=== PATIENT | female | born 1995 | race Caucasian/White ===

== ENCOUNTER 2017-10-24 09:08 | Inpatient (IN) ==
[2017-10-24] MEDS ORDERED: Morphine Inj 4 MG/ML Vial IV.PUSH ONE ×3 (10:05→13:01)
[2017-10-24] MEDS ORDERED: Ketorolac Inj 30 MG/ML (IVP) Vial IV.PUSH ONE ×2 (10:05→12:19)
[2017-10-24] MEDS ORDERED: Sod Chloride 0.9% Inj 1,000 ML IV.SIG ONE (10:05)
[2017-10-24] MEDS ORDERED: Diatrizoate Meglum/Diatrizoate Sod Liq 9 ML UDC ONE (10:08)
--- NOTE | 2017-10-24 10:10 | ED ---
HPI General Chief Complaint: Abdominal Pain Stated Complaint: stomach pain/sob Time Seen by Provider: 10/24/17 09:57 Source: patient Mode of arrival: ambulatory Limitations: no limitations History of Present Illness HPI narrative: The patient is a 21-year-old female who presents to the emergency department for abdominal pain. The patient states she developed nausea and vomiting 3 days ago and subsequently developed abdominal pain yesterday morning. The abdominal pain is located right lower quadrant, radiates to the flanks bilaterally, constant, aching, and associated nausea and vomiting. The patient also endorses anorexia. She denies any diarrhea. Last menstrual cycle was October 02, 2017. Patient is Ab2. The patient denies any dysuria, frequency, urgency, vaginal bleeding, vaginal discharge. She denies any associated fever, chills, or sweats. Previous abdominal surgeries include section. Patient is from the [facility], in the local area for the [facility]. MD complaint: abdominal pain Onset (ago): day(s) Pain Consistency: constant Location: RLQ Severity: moderate Severity scale (1-10): 6 Quality: aching Radiation: bilateral flank Migration to: no migration Relieving factors: nothing Exacerbating factors: nothing Associated symptoms: nausea and vomiting Related Data Date of Last Menstrual Period: 10/02/17 Patient : No Home Medications Medication Instructions Recorded Confirmed No Known Home Medications 10/24/17 10/24/17 Allergies Allergy/AdvReac Type Severity Reaction Status Date / Time No Known Allergies Allergy Unverified 10/24/17 09:17 Review of Systems Except as stated in HPI: all other systems reviewed are negative Constitutional Denies fever(s) Cardiovascular Denies chest pain Respiratory Denies dyspnea Gastrointestinal Reports abdominal pain, Denies diarrhea, Reports nausea and Reports vomiting Genitourinary Denies hematuria, Denies dysuria and Denies vaginal discharge PMFSH Social History Social History Substance History: No History of Abuse Second Hand Smoke Exposure: No Smoking Status: Current every day smoker Tobacco Type: Cigarettes How Often Do You Have a Drink Containing Alcohol: 2 to 3 times a week Recent Travel in [facility] within the Last 8 Weeks: No Recent Out of Country Travel within the Last 8 Weeks: No Immunization History Tetanus Immunization: <5 Years Hx Influenza Vaccine This Season: No Exam Narrative Exam Narrative: GENERAL: Awake, alert, pleasant 21-year-old female who appears her stated age and is in no acute respiratory distress. SKIN: Focused skin assessment warm/dry. HEAD: Atraumatic. Normocephalic. EYES: Pupils equal and round. No scleral icterus. No injection or drainage. ENT: No nasal bleeding or discharge. Mucous membranes pink and moist. NECK: Trachea midline. No JVD. CARDIOVASCULAR: Regular rate and rhythm. No murmur appreciated. RESPIRATORY: No accessory muscle use. Clear to auscultation. Breath sounds equal bilaterally. GASTROINTESTINAL: Abdomen soft, tender palpation. Positive McBurney's. Mild guarding. MUSCULOSKELETAL: No obvious deformities. No clubbing. No cyanosis. No edema. NEUROLOGICAL: Awake and alert. No obvious cranial nerve deficits. Motor grossly within normal limits. Normal speech. PSYCHIATRIC: Appropriate mood and affect; insight and judgment normal. Course Reevaluation(s) Reevaluation #1: CT the abdomen and pelvis is consistent with acute appendicitis. The patient has been n.p.o. since 7 PM last night. The patient was administered Unasyn 3 g intravenously. I discussed the patient with the general surgeon, Dr. Garcia, who agrees with 23 hour observation, he will call the operating room. Time: 12:50 Consultations Consultation #1: I discussed the patient with the on-call general surgeon, Dr. Garcia , who agrees with 23 hour observation and operative management of acute appendicitis. Time: 12:50 Initial Documented Vital Signs Temperature 96.4 F L 10/24/17 09:17 Pulse Rate 89 10/24/17 09:17 Respiratory Rate 20 10/24/17 09:17 Blood Pressure 152/113 H 10/24/17 09:17 Pulse Oximetry 98 10/24/17 09:17 Last Documented Vital Signs Temperature 96.4 F L 10/24/17 09:17 Pulse Rate 89 10/24/17 09:17 Respiratory Rate 20 10/24/17 09:17 Blood Pressure 152/113 H 10/24/17 09:17 Pulse Oximetry 98 10/24/17 09:17 Medical Decision Making [facility] Narrative Medical decision making narrative: IV was established, labs are drawn and sent, and the patient was placed on cardiac telemetry monitoring and continuous pulse oximetry monitoring. The patient was administer morphine, Toradol, Zofran, and IV fluids. The patient was kept n.p.o. CT of the abdomen and pelvis with IV and oral contrast was obtained. Bedside UA test was obtained. White count is elevated at 14, LFTs and lipase are unremarkable. CT the abdomen and pelvis reveals acute appendicitis. The patient was administered Unasyn 3 g intravenously. The patient has been kept n.p.o., I discussed the patient with the on-call general surgeon, Dr. Garcia, who agrees with 23 hour observation and definitive operative management. Differential Diagnosis Differential Diagnosis: Differential diagnosis includes appendicitis, ovarian cyst, ovarian torsion, PID, vaginitis, cervicitis, UTI ectopic , normal . Lab Data Lab results reviewed: Yes I reviewed the patient's lab results. Lab results narrative: Patient's white count is elevated at 14.0, otherwise labs are unremarkable. Result diagrams: 10/24/17 10:20 10/24/17 10:20 Lab Results 10/24/17 10/24/17 10/24/17 Range/Units 10:20 10:20 10:20 WBC 14.0 H (4.0-11.0) th/mm3 RBC 5.18 (4.00-5.30) mil/mm3 Hgb 14.5 (11.6-15.3) gm/dL Hct 40.9 (35.0-46.0) % MCV 79.0 L (80.0-100.0) fL MCH 28.0 (27.0-34.0) pg MCHC 35.4 (32.0-36.0) % RDW 12.5 (11.6-17.2) % Plt Count 286 (150-450) th/mm3 MPV 7.6 (7.0-11.0) fL Neut % (Auto) 84.5 H (16.0-70.0) % Lymph % (Auto) 8.8 L (9.0-44.0) % [place] % (Auto) 6.4 (0.0-8.0) % Eos % (Auto) 0.2 (0.0-4.0) % Baso % (Auto) 0.1 (0.0-2.0) % Neut # (Auto) 11.8 H (1.8-7.7) th/mm3 Lymph # (Auto) 1.2 (1.0-4.8) th/mm3 [place] # (Auto) 0.9 (0.0-0.9) th/mm3 Eos # (Auto) 0.0 (0.0-0.4) th/mm3 Baso # (Auto) 0.0 (0.0-0.2) th/mm3 WBC Differential . Differential Comment Auto diff final PT 9.9 (9.8-11.6) sec INR 1.0 Ratio APTT 25.6 (24.3-30.1) sec Sodium 138 (136-145) meq/L Potassium 3.9 (3.5-5.1) meq/L Chloride 105 (98-107) meq/L Carbon Dioxide 24.1 (21.0-32.0) meq/L Anion Gap 9 (5-15) meq/L BUN 7 (7-18) mg/dL Creatinine 0.85 (0.50-1.00) mg/dL Estimated GFR 84 L (>89) mL/min Random Glucose 98 (74-106) mg/dL Calcium 8.5 (8.5-10.1) mg/dL Total Bilirubin 0.4 (0.2-1.0) mg/dL AST 17 (15-37) U/L ALT 28 (10-53) U/L Alkaline Phosphatase 74 (45-117) U/L Total Protein 7.7 (6.4-8.2) g/dL Albumin 3.6 (3.4-5.0) g/dL Lipase 72 L (73-393) U/L Urine Color (Yellw/Straw) Urine Clarity (Clear) Urine pH (5.0-8.5) Ur Specific [place] (1.002-1.035) Urine Protein (Neg-Trace) mg/dL Urine Glucose (UA) (Negative) mg/dL Urine Ketones (Negative) mg/dL Urine Occult Blood (Negative) Urine Nitrate (Negative) Urine Bilirubin (Negative) Urine Urobilinogen (Less than 2) mg/dL Ur Leukocyte Esterase (Negative) Urine RBC (0-3) /hpf Urine WBC (0-5) /hpf Ur Squamous Epith Cells (0-5) /hpf Urine Bacteria (None) /hpf Urine Mucus (Occasional) /lpf Micro UA Comment Urine Culture Comments 10/24/17 Range/Units 10:30 WBC (4.0-11.0) th/mm3 RBC (4.00-5.30) mil/mm3 Hgb (11.6-15.3) gm/dL Hct (35.0-46.0) % MCV (80.0-100.0) fL MCH (27.0-34.0) pg MCHC (32.0-36.0) % RDW (11.6-17.2) % Plt Count (150-450) th/mm3 MPV (7.0-11.0) fL Neut % (Auto) (16.0-70.0) % Lymph % (Auto) (9.0-44.0) % [place] % (Auto) (0.0-8.0) % Eos % (Auto) (0.0-4.0) % Baso % (Auto) (0.0-2.0) % Neut # (Auto) (1.8-7.7) th/mm3 Lymph # (Auto) (1.0-4.8) th/mm3 [place] # (Auto) (0.0-0.9) th/mm3 Eos # (Auto) (0.0-0.4) th/mm3 Baso # (Auto) (0.0-0.2) th/mm3 WBC Differential Differential Comment PT (9.8-11.6) sec INR Ratio APTT (24.3-30.1) sec Sodium (136-145) meq/L Potassium (3.5-5.1) meq/L Chloride (98-107) meq/L Carbon Dioxide (21.0-32.0) meq/L Anion Gap (5-15) meq/L BUN (7-18) mg/dL Creatinine (0.50-1.00) mg/dL Estimated GFR (>89) mL/min Random Glucose (74-106) mg/dL Calcium (8.5-10.1) mg/dL Total Bilirubin (0.2-1.0) mg/dL AST (15-37) U/L ALT (10-53) U/L Alkaline Phosphatase (45-117) U/L Total Protein (6.4-8.2) g/dL Albumin (3.4-5.0) g/dL Lipase (73-393) U/L Urine Color Yellow (Yellw/Straw) Urine Clarity Hazy H (Clear) Urine pH 7.0 (5.0-8.5) Ur Specific [place] 1.025 (1.002-1.035) Urine Protein 30 H (Neg-Trace) mg/dL Urine Glucose (UA) Negative (Negative) mg/dL Urine Ketones 20 (Negative) mg/dL Urine Occult Blood Negative (Negative) Urine Nitrate Negative (Negative) Urine Bilirubin Negative (Negative) Urine Urobilinogen Less than 2 (Less than 2) mg/dL Ur Leukocyte Esterase Negative (Negative) Urine RBC Less than 1 (0-3) /hpf Urine WBC 7 H (0-5) /hpf Ur Squamous Epith Cells 38 (0-5) /hpf Urine Bacteria Few H (None) /hpf Urine Mucus Moderate H (Occasional) /lpf Micro UA Comment Culture not ind Urine Culture Comments Culture not ind Imaging Data Radiologist's impression: ITS Impressions Abdomen/Pelvis CT 10/24/17 10:05 CONCLUSION: 1. Findings consistent with acute appendicitis. No perforation or abscess. Discharge Plan Discharge Disposition Patient Disposition: 30 Still Patient Discharge Condition Condition: Stable Discharge Details Discharge Problem: Acute appendicitis Physicians Team ED Provider: Gabe Wang Primary Care Provider: Primary Care Leona Cabrera Rxs /Orders / Referrals /Forms Prescriptions: No Action No Known Home Medications RF: 0 Status ED Status: With Doctor
[2017-10-24] MEDS ORDERED: Diatrizoate Meglum/Diatrizoate Sod Liq 9 ML UDC PO ONE (10:42)
[2017-10-24 10:54] LABS: Baso % (Auto) 0.1 % (0.0-2.0); Eos % (Auto) 0.2 % (0.0-4.0); Hematocrit 40.9 % (35.0-46.0); Hemoglobin 14.5 gm/dL (11.6-15.3); Lymph # (Auto) 1.2 th/mm3 (1.0-4.8); Lymph % (Auto) 8.8 % (9.0-44.0); Mean Corpuscular HGB Conc 35.4 % (32.0-36.0); Mean Platelet Volume 7.6 fL (7.0-11.0); Mono # (Auto) 0.9 th/mm3 (0.0-0.9); Mono % (Auto) 6.4 % (0.0-8.0); Neut # (Auto) 11.8 th/mm3 (1.8-7.7); Neut % (Auto) 84.5 % (16.0-70.0); Platelet Count 286 th/mm3 (150-450); Red Blood Count 5.18 mil/mm3 (4.00-5.30); Red Cell Distribution Width 12.5 % (11.6-17.2)
[2017-10-24 11:04] LABS: Activated Partial Thrombo Time 25.6 sec (24.3-30.1); Prothrombin Time 9.9 sec (9.8-11.6)
[2017-10-24 11:17] LABS: Alanine Aminotransferase 28 U/L (10-53); Albumin 3.6 g/dL (3.4-5.0); Anion Gap 9 meq/L (5-15); Aspartate Aminotransferase 17 U/L (15-37); Blood Urea Nitrogen 7 mg/dL (7-18); Calcium 8.5 mg/dL (8.5-10.1); Carbon Dioxide 24.1 meq/L (21.0-32.0); Chloride 105 meq/L (98-107); Glomerular Filtration Rate 84 mL/min (>89); Glucose,Random 98 mg/dL (74-106); Lipase 72 U/L (73-393); Potassium 3.9 meq/L (3.5-5.1); Sodium 138 meq/L (136-145)
[2017-10-24 11:18] LABS: Bacteria,Urine Few /hpf; Bilirubin,Urine Negative (Negative); Clarity,Urine Hazy (Clear); Color,Urine Yellow (Yellw/Straw); Glucose,Urine (UA) Negative (Negative); Leukocyte Esterase,Urine Negative (Negative); Mucus,Urine Moderate /lpf (Occasional); Nitrite,Urine Negative (Negative); Specific Gravity,Urine 1.025 (1.002-1.035); Squamous Epithelial Cell,Urine 38 /hpf (0-5)
[2017-10-24 11:19] LABS: Alkaline Phosphatase 74 U/L (45-117); Total Protein 7.7 g/dL (6.4-8.2)
[2017-10-24] MEDS ORDERED: Lidocaine PF 1% Inj 5 ML Syringe INFILTRATN ONE (12:19)
[2017-10-24] MEDS ORDERED: Glycopyrrolate Inj 1 MG/5 ML Syringe IV.PUSH ONE (12:19)
[2017-10-24] MEDS ORDERED: Succinylcholine Inj 200 MG/10 ML Vial IV.PUSH ONE (12:19)
[2017-10-24] MEDS ORDERED: Neostigmine Inj 5 MG/5 ML Syringe IV.PUSH ONE (12:19)
--- NOTE | 2017-10-24 12:46 | CT ---
EXAM DATE: 10/24/2017 12:36 PM EDT AGE/SEX: 21 years / Female INDICATIONS: Right lower abdominal pain. CLINICAL DATA: This is the patient's initial encounter. Patient reports that signs and symptoms have been present for 2 days and indicates a pain score of 5/10. MEDICAL/SURGICAL HISTORY: None. None. ORAL CONTRAST: Prescribed oral contrast ingested. RADIATION DOSE: 9.79 CTDI (mGy) COMPARISON: No prior exams available for comparison. TECHNIQUE: Multiple contiguous axial images were obtained through the abdomen and pelvis following b olus infusion of 80 ml Omnipaque 350 (iohexol) nonionic water-soluble contrast as a single exam dos e. Prescribed oral contrast ingested. Using automated exposure control and adjustment of the mA and/ or kV according to patient size, radiation dose was kept as low as reasonably achievable to obtain op timal diagnostic quality images. DICOM format image data is available electronically for review and comparison. FINDINGS: Lower Lungs: The visualized lower lungs are clear. Liver: The liver has a homogeneous density without space-occupying lesion. There is no dilation of th e biliary tree. Spleen: Homogeneous density without enlargement. Pancreas: Unremarkable without mass or calcification. Kidneys: Normal in size and shape. No evidence of mass or hydronephrosis. Adrenal Glands: Unremarkable. Aorta: The aorta and proximal iliac vessels are grossly unremarkable without aneurysmal dilation. Bowel/Mesentery: The bowel loops are grossly unremarkable. The cecum and sigmoid colon have a normal configuration. Appendix is prominent with slight inflammatory changes. Diameter is 11 mm. Small lymp h nodes right lower quadrant. Abdominal Wall: Intact. Retroperitoneum: No evidence of adenopathy in the retrocrural, para-aortic, or deep pelvic regions. Bladder: Contours are smooth. Reproductive Organs: No abnormal masses or calcifications seen. Inguinal: The inguinal region is unremarkable without evidence of adenopathy. Bony Structures: Unremarkable. CONCLUSION: 1. Findings consistent with acute appendicitis. No perforation or abscess. Electronically signed by: Cody Acosta MD 10/24/2017 12:45 PM EDT
[2017-10-24] MEDS ORDERED: Ampicillin/Sulbactam Inj 3 GM in Sodium Chloride 0.9% Inj 100 ML IV.SIG ONE (12:49)
[2017-10-24] MEDS ORDERED: Bupivacaine/Epinephrine Inj 0.25% 50 ML Vial ONE (13:54)
[2017-10-24] MEDS ORDERED: fentaNYL Citrate Inj 100 MCG/2 ML Ampul ONE (15:43)
[2017-10-24] MEDS ORDERED: Post-op Orders (for Pharmacy) OTHER ONE ×2 (16:01→16:02)
[2017-10-24] MEDS ORDERED: Bisacodyl 10 MG Supp RECTAL PRN ×2 (16:01→16:02)
[2017-10-24] MEDS ORDERED: Promethazine 25 MG Supp RECTAL PRN (16:01)
[2017-10-24] MEDS ORDERED: Naloxone Inj 0.4 MG/ML Vial IV.PUSH PRN ×2 (16:01→16:02)
[2017-10-24] MEDS ORDERED: *Meperidine Inj 25 MG/ML Vial PERIprocedural Use ONLY ONE (16:12)
[2017-10-24] MEDS: Sod Chloride 0.9% Inj 1,000 ML IV.CONT SCH (16:28)
[2017-10-24] MEDS: Potassium Chloride Inj 10 MEQ in Sod Chloride 0.9% Inj 1,000 ML IV.CONT SCH ×2 (16:45→22:00)
[2017-10-24] MEDS: Morphine Inj 4 MG/ML Vial IV.PUSH PRN ×3 (17:20→23:23)
--- NOTE | 2017-10-24 18:03 | P.PNCA ---
- Note Subjective/Hospital Course: Brief postop note 21-year-old female with acute purulent appendicitis Successful laparoscopic appendectomy Patient to be transferred to the floor advanced to the diet will probably stay in hospital day or 2 Full dictation completed Objective: Vital Signs - 24 hr 10/24/17 09:17 10/24/17 15:30 Temperature 96.4 F L 98 F Pulse Rate 89 93 H Respiratory Rate 20 20 Blood Pressure 152/113 H 135/76 Pulse Oximetry 98 100 Labs: Laboratory Results - last 12 hr 10/24/17 10/24/17 10/24/17 10:20 10:20 10:20 WBC 14.0 H RBC 5.18 Hgb 14.5 Hct 40.9 MCV 79.0 L MCH 28.0 MCHC 35.4 RDW 12.5 Plt Count 286 MPV 7.6 Neut % (Auto) 84.5 H Lymph % (Auto) 8.8 L [place] % (Auto) 6.4 Eos % (Auto) 0.2 Baso % (Auto) 0.1 Neut # (Auto) 11.8 H Lymph # (Auto) 1.2 [place] # (Auto) 0.9 Eos # (Auto) 0.0 Baso # (Auto) 0.0 WBC Differential . Differential Comment Auto diff final PT 9.9 INR 1.0 APTT 25.6 Sodium 138 Potassium 3.9 Chloride 105 Carbon Dioxide 24.1 Anion Gap 9 BUN 7 Creatinine 0.85 Estimated GFR 84 L Random Glucose 98 Calcium 8.5 Total Bilirubin 0.4 AST 17 ALT 28 Alkaline Phosphatase 74 Total Protein 7.7 Albumin 3.6 Lipase 72 L Urine Color Urine Clarity Urine pH Ur Specific [place] Urine Protein Urine Glucose (UA) Urine Ketones Urine Occult Blood Urine Nitrate Urine Bilirubin Urine Urobilinogen Ur Leukocyte Esterase Urine RBC Urine WBC Ur Squamous Epith Cells Urine Bacteria Urine Mucus Micro UA Comment Urine Culture Comments 10/24/17 10:30 WBC RBC Hgb Hct MCV MCH MCHC RDW Plt Count MPV Neut % (Auto) Lymph % (Auto) [place] % (Auto) Eos % (Auto) Baso % (Auto) Neut # (Auto) Lymph # (Auto) [place] # (Auto) Eos # (Auto) Baso # (Auto) WBC Differential Differential Comment PT INR APTT Sodium Potassium Chloride Carbon Dioxide Anion Gap BUN Creatinine Estimated GFR Random Glucose Calcium Total Bilirubin AST ALT Alkaline Phosphatase Total Protein Albumin Lipase Urine Color Yellow Urine Clarity Hazy H Urine pH 7.0 Ur Specific [place] 1.025 Urine Protein 30 H Urine Glucose (UA) Negative Urine Ketones 20 Urine Occult Blood Negative Urine Nitrate Negative Urine Bilirubin Negative Urine Urobilinogen Less than 2 Ur Leukocyte Esterase Negative Urine RBC Less than 1 Urine WBC 7 H Ur Squamous Epith Cells 38 Urine Bacteria Few H Urine Mucus Moderate H Micro UA Comment Culture not ind Urine Culture Comments Culture not ind Result Diagrams: 10/24/17 10:20 10/24/17 10:20
--- NOTE | 2017-10-24 18:21 | MH ---
cc: Elizabeth Brar MD, Slobodan MD DATE OF ADMISSION: 10/24/2017 ADMISSION DIAGNOSIS: Acute appendicitis. HISTORY OF PRESENT ILLNESS: This is a 21-year-old female who lives down in [place] who came for a visit to [place] and started experiencing abdominal pain yesterday morning. This was associated with nausea, but no vomiting. The patient is anorexic. She was worked up in the emergency room, found to have acute appendicitis based on the history, clinical impression, laboratory and diagnostic procedures. The patient is now scheduled to undergo laparoscopic appendectomy. PAST MEDICAL HISTORY: Negative. PAST SURGICAL HISTORY: . MEDICATIONS: No medications. SOCIAL HISTORY: The patient lives in [place]. PHYSICAL EXAMINATION: GENERAL: Reveals a pleasant 21-year-old female. HEENT: Normocephalic. No trauma to the head. Pupils equal and reactive. Extraocular muscles intact. NECK: Supple, bilateral carotid good pulses. No bruits. CHEST: Clear, bilateral breath sounds. HEART: Regular rhythm. ABDOMEN: Soft. There is quite significant guarding and rebound in the right lower quadrant and there is also referred tenderness on the left. This is quite consistent with acute appendicitis. Pelvis is stable. EXTREMITIES: Within normal limits. IMPRESSION: A patient with acute appendicitis for laparoscopic appendectomy today. MD RACHAEL Covington/ , 06:01 PM , 06:19 PM
[2017-10-24] MEDS: ceFAZolin Inj 1,000 MG in Sodium Chlor 0.9% Inj 100 ML IV.SIG SCH (18:24)
[2017-10-24] MEDS: Senna/Docusate Sodium 8.6/50 MG Tablet PO SCH (20:06)
[2017-10-24] MEDS ORDERED: Senna/Docusate Sodium 8.6/50 MG Tablet PO SCH (21:00)
[2017-10-25] MEDS: ceFAZolin Inj 1,000 MG in Sodium Chlor 0.9% Inj 100 ML IV.SIG SCH ×2 (01:07→08:00)
[2017-10-25] MEDS: Potassium Chloride Inj 10 MEQ in Sod Chloride 0.9% Inj 1,000 ML IV.CONT SCH ×2 (01:11→06:26)
[2017-10-25] MEDS: Sod Chloride 0.9% Inj 1,000 ML IV.CONT SCH (03:04)
[2017-10-25] MEDS: Morphine Inj 4 MG/ML Vial IV.PUSH PRN ×2 (03:13→10:59)
[2017-10-25] MEDS: Senna/Docusate Sodium 8.6/50 MG Tablet PO SCH (08:01)
[2017-10-25 09:25] VITALS: BP 131/69; PULSE 84; RESP 16; TEMP 97.8; O2SAT 96
--- NOTE | 2017-10-25 11:02 | P.PNCA ---
- Note Subjective/Hospital Course: Brief postop note 21-year-old female with acute purulent appendicitis Successful laparoscopic appendectomy Patient to be transferred to the floor advanced to the diet will probably stay in hospital day or 2 Full dictation completed 10/25/2017 Status post laparoscopic appendectomy Incisions are clean and dry abdomen is soft with active bowel sounds No rebound no guarding slightly tender in the areas of port placements Patient had bowel movement is taking p.o. well DC patient today with instructions for follow-up Objective: Vital Signs - 24 hr 10/24/17 15:30 10/24/17 15:45 10/24/17 16:00 Temperature 98 F Pulse Rate 93 H 69 73 Respiratory Rate 20 15 16 Blood Pressure 135/76 128/74 130/69 Pulse Oximetry 100 96 96 10/24/17 16:15 10/24/17 16:30 10/24/17 20:15 Temperature 97.8 F 97.8 F Pulse Rate 75 72 77 Respiratory Rate 16 16 18 Blood Pressure 133/67 123/68 143/90 H Pulse Oximetry 95 95 95 10/25/17 00:13 10/25/17 01:06 10/25/17 04:22 Temperature 97.6 F Pulse Rate 72 Respiratory Rate 18 18 18 Blood Pressure 133/88 Pulse Oximetry 98 10/25/17 04:39 10/25/17 08:00 Temperature 97.5 F L 97.8 F Pulse Rate 73 84 Respiratory Rate 18 16 Blood Pressure 121/74 131/69 Pulse Oximetry 98 96 Labs: Laboratory Results - last 12 hr 10/25/17 07:24 Hgb 13.5 Result Diagrams: 10/25/17 07:24 10/24/17 10:20
[2017-10-25 11:33] LABS: Baso % (Auto) 0.2 % (0.0-2.0); Eos % (Auto) 0.2 % (0.0-4.0); Hematocrit 36.2 % (35.0-46.0); Lymph # (Auto) 1.7 th/mm3 (1.0-4.8); Mean Corpuscular HGB Conc 33.2 % (32.0-36.0); Mean Corpuscular Hemoglobin 26.7 pg (27.0-34.0); Mean Corpuscular Volume 80.5 fL (80.0-100.0); Mean Platelet Volume 7.6 fL (7.0-11.0); Mono # (Auto) 0.7 th/mm3 (0.0-0.9); Mono % (Auto) 5.6 % (0.0-8.0); Neut # (Auto) 9.9 th/mm3 (1.8-7.7); Platelet Count 286 th/mm3 (150-450); Red Cell Distribution Width 12.4 % (11.6-17.2); White Blood Count 12.4 th/mm3 (4.0-11.0)
[2017-10-25] MEDS ORDERED: Enoxaparin Inj 40 MG/0.4 ML Syringe SQ SCH (15:00)
--- NOTE | 2017-10-25 15:57 | MP ---
cc: Elizabeth Brar MD DATE OF OPERATION: PREOPERATIVE DIAGNOSIS: Acute appendicitis. POSTOPERATIVE DIAGNOSIS: Acute appendicitis. PROCEDURE PERFORMED: Laparoscopic appendectomy. SURGEON: Dr. Brar. ANESTHESIA: General. ESTIMATED BLOOD LOSS: 100 mL PROCEDURE: The patient was prepped and draped in usual fashion. Supraumbilical incision was made, deepened down through the fascia and under direct vision the abdomen is entered. A Jaymie cannula was inserted. Abdomen was insufflated with CO2 and the patient positioned. The second port is placed suprapubic. However, the patient had a here, so there is a fairly significant scar. Therefore, a second port had to be placed slightly higher and slightly off midline and a third port was placed in the left lower quadrant between the other two. A 30-degree camera was inserted. Abdomen was visualized. The patient has some inflammation in the right lower quadrant, right colon is moved a little more medially and then small bowel was swept away. The omentum is slowly teased off. The patient has a fairly inflamed purulent appendix; however, not perforated. Appendix was grasped with the Endo [place] and elevated. Mesoappendix was dissected with a [place] dissector and an Endo-DASH with a white load was fired first across the base of the appendix and the second and third load over the mesoappendix. Mesoappendix is fairly strong. Appendix is sort of stuck to the right lower quadrant partially being retroperitoneal. Hence, several firing of the loads. Once this is completed, the appendix was removed using EndoCatch bag. The area irrigated with copious amounts of saline. Meticulous hemostasis assured. Instruments withdrawn. Incisions closed with 0 Vicryl and 4-0 Monocryl. The patient tolerated the procedure well. MD RACHAEL Covington/JOAN , 03:31 PM , 03:55 PM
== END 2017-10-25 12:20 | disposition home or self-care (01) ==
LOC: NEPD 09:08 → NEDA 09:08 → N07 16:56
PROVIDERS: ADMIT Surgery; ATTEND Surgery
PROC: LAPAPPY (ICD-10-PCS; 2017-10-24 14:16)
DX: F17.210 Nicotine dependence, cigarettes, uncomplicated; K35.80 Unspecified acute appendicitis